=== PATIENT | male | born 2000 | race Hispanic/Latino ===

== ENCOUNTER 2021-10-14 17:55 | Emergency (ER) | payer SELFPAY ==
[2021-10-14] MEDS ORDERED: ONDANSETRON 4 MG/2 ML VIAL ONE (18:05)
[2021-10-14] MEDS ORDERED: MORPHINE 4 MG/ML SYR ONE (18:05)
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
[2021-10-14 18:57] VITALS: BP 147/94; TEMP 97.8; O2SAT 99
--- NOTE | 2021-10-14 19:32 | RAD REPORT ---
EXAM DESCRIPTION: RAD - Shoulder 1 View - 10/14/2021 6:52 pm CLINICAL HISTORY: post shoulder reduction COMPARISON: No comparisons FINDINGS/IMPRESSION: No acute fracture. No malalignment. No significant focal degenerative changes.
== END 2021-10-14 18:46 | disposition home or self-care (01) ==
LOC: ER 17:55
PROC: 0RSKXZZ Reposition Left Shoulder Joint, External Approach (ICD-10-PCS; principal; 2021-10-14)
DX: S43.085A Other dislocation of left shoulder joint, initial encounter (principal); W17.89XA Other fall from one level to another, initial encounter; Y92.832 Beach as the place of occurrence of the external cause
CPT/HCPCS: 73020; 96374; 96375; 99284; J2405